=== PATIENT | female | born 1935 | race Two or more races ===

== ENCOUNTER → 2020-08-09 | Emergency (ER) | payer OTHER ==
[~2020-08-09] VITALS: Ht 152.4 cm; Wt 46.3 kg
[~2020-08-09] MED LIST: ATACAND16 MG; FOSAMAX70 MG; MIRTAZAPINE15 M1; MONTELUKAST SODI4 M1; TOPROL XL25 M1; UNITHROID75 MCG
== END | disposition left against medical advice (07) ==
LOC: ER 14:10
DX: Z53.20 Procedure and treatment not carried out because of patient's decision for unspecified reasons (principal)